=== PATIENT | female | born 1955 | race Caucasian/White ===

== ENCOUNTER 2018-03-06 06:35 | Inpatient (IN) | payer MEDICARE, MEDICAID ==
[~2018-03-06] VITALS: Ht 154.9 cm; Wt 69.6 kg
[2018-03-06] VITALS (7 sets, daily range): BP systolic 100–144; BP diastolic 58–82
--- NOTE | ~2018-03-06 | EKG ---
[place], [place] ELECTROCARDIOGRAM REPORT NAME: BRAD JIM UNIT #: [id number] ROOM: 407 DOCTOR: ZARIA DRAFT REPORT BIRTHDATE: [birth year] [facility] Test Date: 2018-03-06 Test Time: 14:01:57 Pat Name: BRAD JIM Department: Room: 407 Gender: F Gambling Monitor: Tessie Orellana : 1955 Requested By: JAYSON CESAR Order Number: [id number] Reading MD: Evelyne Sousa MD Measurements Intervals [place] Rate: 69 P: UT: QRS: -8 QRSD: 184 T: 8 QT: 507 QTc: 544 Interpretive Statements Sinus rhythm LVH with secondary repolarization abnormality Prolonged QT interval Baseline wander in lead(s) V5 Electronically Signed On 03-07-2018 10:48:20 PST by Evelyne Sousa MD CM:EKGRPT:ELECTROCARDIOGRAM REPORT [id number] JAYSON FLORES DRAFT REPORT JAYSON CESAR DO
--- NOTE | ~2018-03-06 | EKG ---
[place], [place] ELECTROCARDIOGRAM REPORT NAME: BRAD JIM UNIT #: [id number] ROOM: 407 DOCTOR: ZARIA DRAFT REPORT BIRTHDATE: [birth year] [facility] Test Date: 2018-03-06 Test Time: 10:31:38 Pat Name: BRAD JIM Department: Room: 407 Gender: F Aircrewman: Tessie Orellana : 1955 Requested By: JAYSON CESAR Order Number: [id number] Reading MD: Evelyne Sousa MD Measurements Intervals [place] Rate: 62 P: 22 SD: 107 QRS: 5 QRSD: 84 T: 19 QT: 422 QTc: 429 Interpretive Statements Sinus rhythm Short SD interval Electronically Signed On 03-07-2018 10:47:48 PST by Evelyne Sousa MD CM:EKGRPT:ELECTROCARDIOGRAM REPORT [id number] JAYSON FLORES DRAFT REPORT JAYSON CESAR DO
--- NOTE | ~2018-03-06 | ST ---
[place], [place] EXERCISE STRESS TEST REPORT NAME: BRAD JIM UNIT #: [id number] ROOM: 407 DOCTOR: LISA LORENZO MD BIRTHDATE: [birth year] DOS: 03/07/2018 LEXISCAN STRESS EKG REPORT REFERRING PHYSICIAN: Dr. Alvarado. INDICATION: Central chest pain. The patient underwent standard protocol Lexiscan stress EKG. The patient's baseline EKG is normal sinus rhythm with nonspecific ST-T wave changes with heart rate of 67 with a blood pressure of 132/76. The patient's peak heart rate was 102 with blood pressure of 140/56. The patient had no chest pain, no EKG changes, no arrhythmias noted. SUMMARY OF FINDINGS: Unremarkable Lexiscan stress EKG. See separate report for perfusion scan imaging results. LISA LORENZO MD CM:STRESS:EXERCISE STRESS TEST REPORT [id number] LISA LORENZO MD
--- NOTE | ~2018-03-06 | EKG ---
[place], [place] ELECTROCARDIOGRAM REPORT NAME: BRAD JIM UNIT #: [id number] ROOM: 407 DOCTOR: ZARIA DRAFT REPORT BIRTHDATE: [birth year] [facility] Test Date: 2018-03-06 Test Time: 06:43:54 Pat Name: BRAD JIM Department: Room: 407 Gender: F Pct: Tessie Orellana : 1955 Requested By: JAYSON CESAR Order Number: [id number] Reading MD: Evelyne Sousa MD Measurements Intervals [place] Rate: 66 P: 31 SD: 106 QRS: 9 QRSD: 83 T: 15 QT: 408 QTc: 428 Interpretive Statements Sinus rhythm Short SD interval Electronically Signed On 03-07-2018 10:47:34 PST by Evelyne Sousa MD CM:EKGRPT:ELECTROCARDIOGRAM REPORT [id number] JAYSON FLORES DRAFT REPORT JAYSON CESAR DO
[~2018-03-06 06:35] MED LIST: ASPIRIN ADULT L81 M1 PO; GLUCOPHAGE1000 MG PO; JANUVIA100 MG PO; MAXZIDE 25 MG-31 TAB PO; MOTRIN800 MG PO; VIBRAMYCIN100 MG PO; ZOCOR20 MG PO; ZOLOFT100 MG PO
[2018-03-06] MEDS ORDERED: GLUCOTROL10 MG PO (06:45)
[2018-03-06] MEDS ORDERED: PRILOSEC20 M1 PO (06:45)
[2018-03-06] MEDS ORDERED: VISTARIL50 MG PO (06:45)
[2018-03-06] MEDS ORDERED: PROZAC40 M1 PO (06:45)
[2018-03-06] MEDS ORDERED: KETOROLAC10 MG PO (06:46)
[2018-03-06 06:47] LABS: BASO # 0.1 10*3/uL (0.0-0.1); BASO % 0.6 % (0.0-1.0); EOS # 0.5 10*3/uL (0.0-0.4); HEMATOCRIT 43.2 % (37.0-47.0); HEMOGLOBIN 14.5 g/dl (12.0-16.0); LYMPH % 32.2 % (27.0-41.0); MEAN CELL VOLUME 80.9 fl (81.0-99.0); MEAN CORPUSCULAR HGB 27.2 pg (27.0-31.0); MEAN CORPUSCULAR HGB CONC 33.6 g/dl (33.0-37.0); MEAN PLATELET VOLUME 10.6 fl (9.6-12.3); MONO # 0.5 10*3/uL (0.1-1.0); MONO % 5.7 % (3.0-9.0); NEUT # 5.2 10*3/uL (2.3-7.9); PLATELET COUNT AUTOMATED 301 10*3/uL (130-400); RED BLOOD COUNT 5.34 10*6/uL (4.10-5.10); RED CELL DISTRI WIDTH 12.7 % (0-14.5); WHITE BLOOD COUNT 9.3 10*3/uL (4.8-10.8)
[2018-03-06 06:57] LABS: ACT PARTIAL THROMBO TIME 23.1 SECONDS (20.8-31.5); INTERNATIONAL NORM RATIO 0.9 (2.0-3.5)
[2018-03-06 07:05] LABS: ALBUMIN 3.5 gm/dl (3.1-4.5); ALKALINE PHOSPHATASE 140 U/L (45-117); BUN 14 mg/dl (7-24); CHLORIDE 100 mmol/L (98-107); CREATININE 0.96 mg/dL (0.55-1.02); POTASSIUM 3.8 mmol/L (3.5-5.1); SGOT/AST 30 IU/L (3-35); SGPT/ALT 30 U/L (12-78); SODIUM 136 mmol/L (136-145)
[2018-03-06 07:06] LABS: TROPONIN I < 0.015 ng/ml (<0.045)
--- NOTE | 2018-03-06 09:38 | NUR ---
CCA 62, admitted to , under the services of MAY Nelson DO with a diagnosis of CHEST PAIN, RULE OUT [place]. Chief complaint is CHEST PAIN. Patient arrived via ambulatory from ER. Monitor applied. Initial assessment completed. Vital signs taken and recorded. MAY NELSON DO notified of admission to the unit. Orders received. See assessment for past medical history, medications and allergies. Patient and/or family oriented to unit. [facility]. Clothing/patient valuable form completed. HORTENCIA DANIELS.
[2018-03-06] MEDS ORDERED: METOPROLOL SUCC50 M1 PO (09:55)
[2018-03-06] MEDS ORDERED: LIPITOR20 MG PO (09:56)
--- NOTE | 2018-03-06 11:10 | NUR ---
'S OFFICE NOTIFIED OF CONSULT.
--- NOTE | 2018-03-06 11:20 | NUR ---
ECHO BEING PERFORMED AT THE BEDSIDE.
--- NOTE | 2018-03-06 19:00 | NUR ---
ASSUMED CARE OF PT AT THIS TIME. PT RESTING IN BED, EASILY AROUSABLE. NO COMPLAINTS VOICED AT THIS TIME. WILL MONITOR. CALL LIGHT LEFT IN REACH.
[2018-03-07] VITALS: BP 115/55
[2018-03-07 01:00] VITALS: BP 139/85
--- NOTE | 2018-03-07 01:15 | NUR ---
PO TYLENOL ADMINISTERED PER PRN ORDER FOR C/O HEADACHE. WILL MONITOR EFFECTIVENESS. CALL LIGHT LEFT IN REACH.
[2018-03-07 06:50] LABS: BASO # 0.1 10*3/uL (0.0-0.1); BASO % 0.6 % (0.0-1.0); EOS # 0.4 10*3/uL (0.0-0.4); EOS % 5.1 % (1.0-4.0); HEMATOCRIT 41.3 % (37.0-47.0); HEMOGLOBIN 13.8 g/dl (12.0-16.0); LYMPH # 2.2 10*3/uL (1.3-4.4); MEAN CELL VOLUME 79.9 fl (81.0-99.0); MEAN CORPUSCULAR HGB 26.7 pg (27.0-31.0); MEAN CORPUSCULAR HGB CONC 33.4 g/dl (33.0-37.0); MEAN PLATELET VOLUME 10.7 fl (9.6-12.3); MONO # 0.4 10*3/uL (0.1-1.0); NEUT # 5.5 10*3/uL (2.3-7.9); NEUT % 63.6 % (47.0-73.0); PLATELET COUNT AUTOMATED 242 10*3/uL (130-400); RED BLOOD COUNT 5.17 10*6/uL (4.10-5.10); RED CELL DISTRI WIDTH 12.5 % (0-14.5); WHITE BLOOD COUNT 8.6 10*3/uL (4.8-10.8)
[2018-03-07 07:07] LABS: ALBUMIN 3.2 gm/dl (3.1-4.5); ALKALINE PHOSPHATASE 120 U/L (45-117); BUN 15 mg/dl (7-24); CHLORIDE 96 mmol/L (98-107); CHOLESTEROL 138 mg/dL (<200); CREATININE 0.87 mg/dL (0.55-1.02); FREE T4 0.79 ng/dl (0.76-1.46); HDL CHOLESTEROL 27 mg/dl (40-60); PHOSPHOROUS 4.4 mg/dL (2.5-4.9); POTASSIUM 4.6 mmol/L (3.5-5.1); SGOT/AST 29 IU/L (3-35); SGPT/ALT 31 U/L (12-78); SODIUM 134 mmol/L (136-145); TOTAL PROTEIN 6.4 gm/dL (6.4-8.2); TRIGLYCERIDES 434 mg/dl (<150)
[2018-03-07 08:07] LABS: VITAMIN D, 25-HYDROXY 14.2 ng/mL (30-100)
--- NOTE | 2018-03-07 09:00 | NUR ---
Rubber Chemist in to talk to patient. Patient states lives at home with family. There are few steps in the home. Physician: [facility] Patient's level of ADLs: INDEPENDENT Patient has working utilities: all working DME: none Follow-up physician's appointment after d/c: will be made by hospitalist nurse director upon discharge Does patient want to access PORTAL?: no Discharge plan discussed with patient, patient lives at home, is independent in adls and ambulation, patient states she will be going [facility] home when able and denies any home needs. VANNESSA WARNER
--- NOTE | 2018-03-07 10:30 | NUR ---
PATIENT HAS LEFT FLOOR FOR A STRESS TEST.
--- NOTE | 2018-03-07 11:56 | NUR ---
INFORMED SIGNED CONSENT OBTAINED FOR LEXISCAN STRESS TEST WITH DR LORENZO. RESTING EKG NSR HR 67 BP 132/76. PULSE OX 96% LUNGS CLEAR. PT COMPLETED ONE MINUTE OF A LEXISCAN PROTOCOL WITH PT RECEIVING LEXISCAN 0.4MG IV OVER 10 SECONDS. NO ARRHYTHMIAS OR ST CHANGES NOTED. PT C/O NAUSEA WITH INJECTION. LAST RECOVERY HR OF 93 BP 130/60. PT IN STABLE CONDITION, AWAITING NUCLEAR IMAGES.
[2018-03-07] MEDS ORDERED: NOVOLOG FL100 UNIT/1 SQ (15:53)
[2018-03-07] MEDS ORDERED: LEVEMIR FL100 UNIT/1 SQ (15:53)
[2018-03-07] MEDS ORDERED: PEN NEEDLE1 EAC2 MC (15:53)
[2018-03-07 16:00] VITALS: BP 123/68
--- NOTE | 2018-03-07 17:24 | NUR ---
PATIENT IS DISCHARGED. IV HAS BEEN DISCONTINUED AND MONITOR ACCOUNTED FOR. PATIENT LEFT FLOOR BY HERSELF AND REFUSED A WHEELCHAIR.
== END 2018-03-07 17:24 | disposition home or self-care (01) | DRG 880 ==
LOC: ED 06:35 → 4E 09:07 → EDHOLD 09:07 → 4E 09:17
PROVIDERS: Emergency Medicine; Student in an Organized Health Care Education/Training Program; ADMIT Internal Medicine
PROC: 4A02XM4 Measurement of Cardiac Total Activity, External Approach (ICD-10-PCS; principal; 2018-03-07)
PROC: 3E073KZ Introduction of Other Diagnostic Substance into Coronary Artery, Percutaneous Approach (ICD-10-PCS; principal; 2018-03-07)
DX: F41.9 Anxiety disorder, unspecified (principal); F32.9 Major depressive disorder, single episode, unspecified; R71.8 Other abnormality of red blood cells; E11.65 Type 2 diabetes mellitus with hyperglycemia; D72.1 Eosinophilia; E78.5 Hyperlipidemia, unspecified; I11.9 Hypertensive heart disease without heart failure; I34.0 Nonrheumatic mitral (valve) insufficiency; F17.210 Nicotine dependence, cigarettes, uncomplicated; I25.10 Atherosclerotic heart disease of native coronary artery without angina pectoris; K21.9 Gastro-esophageal reflux disease without esophagitis; Z88.5 Allergy status to narcotic agent; Z90.49 Acquired absence of other specified parts of digestive tract; Z88.0 Allergy status to penicillin; Z98.51 Tubal ligation status; Z79.82 Long term (current) use of aspirin; Z79.899 Other long term (current) drug therapy; Z79.84 Long term (current) use of oral hypoglycemic drugs

== ENCOUNTER → 2018-03-25 | Outpatient (CLI) | payer MEDICARE, MEDICAID ==
[~2018-03-25] MED LIST changes: +GLUCOTROL10 MG PO; +KETOROLAC10 MG PO; +LEVEMIR FL100 UNIT/1 SQ; +LIPITOR20 MG PO; +METOPROLOL SUCC50 M1 PO; +NOVOLOG FL100 UNIT/1 SQ; +PEN NEEDLE1 EAC2 MC; +PRILOSEC20 M1 PO; +PROZAC40 M1 PO; +VISTARIL50 MG PO
== END | disposition home or self-care (01) ==
LOC: RESCLI 02:16
DX: E11.9 Type 2 diabetes mellitus without complications (principal); I10 Essential (primary) hypertension; F32.9 Major depressive disorder, single episode, unspecified; F41.1 Generalized anxiety disorder; E78.5 Hyperlipidemia, unspecified; K21.9 Gastro-esophageal reflux disease without esophagitis; E53.8 Deficiency of other specified B group vitamins; E55.9 Vitamin D deficiency, unspecified; Z76.89 Persons encountering health services in other specified circumstances; Z79.4 Long term (current) use of insulin; Z79.84 Long term (current) use of oral hypoglycemic drugs; Z79.82 Long term (current) use of aspirin; Z79.899 Other long term (current) drug therapy; Z87.891 Personal history of nicotine dependence

== ENCOUNTER 2018-03-27 11:27 | Emergency (ER) | payer MEDICARE, MEDICAID ==
[~2018-03-27] VITALS: Ht 152.4 cm; Wt 67.1 kg
== END 2018-03-27 13:07 | disposition home or self-care (01) ==
LOC: ED 11:27
DX: T14.90XA Injury, unspecified, initial encounter (principal); M25.511 Pain in right shoulder; M25.552 Pain in left hip; M79.605 Pain in left leg; M19.90 Unspecified osteoarthritis, unspecified site; I10 Essential (primary) hypertension; E11.9 Type 2 diabetes mellitus without complications; E78.5 Hyperlipidemia, unspecified; Z87.891 Personal history of nicotine dependence; Z79.899 Other long term (current) drug therapy; Z79.82 Long term (current) use of aspirin; Z88.0 Allergy status to penicillin; Z88.6 Allergy status to analgesic agent; W07.XXXA Fall from chair, initial encounter; Y93.89 Activity, other specified; Y92.89 Other specified places as the place of occurrence of the external cause; Y99.8 Other external cause status

== ENCOUNTER → 2018-04-08 | Outpatient (CLI) | payer MEDICARE, MEDICAID | END | disposition home or self-care (01) | LOC: RESCLI 14:49 | DX: I10 Essential (primary) hypertension (principal); E11.9 Type 2 diabetes mellitus without complications; F32.9 Major depressive disorder, single episode, unspecified; F41.1 Generalized anxiety disorder; E78.5 Hyperlipidemia, unspecified; K21.9 Gastro-esophageal reflux disease without esophagitis; E53.8 Deficiency of other specified B group vitamins; E55.9 Vitamin D deficiency, unspecified; V89.2XXA Person injured in unspecified motor-vehicle accident, traffic, initial encounter; Z79.899 Other long term (current) drug therapy; Z79.4 Long term (current) use of insulin; Z88.8 Allergy status to other drugs, medicaments and biological substances; Z87.891 Personal history of nicotine dependence ==

== ENCOUNTER → 2019-02-19 | Outpatient (CLI) | payer MEDICARE, MEDICAID ==
[2019-02-19 10:56] LABS: BASO # 0.1 10*3/uL (0.0-0.1); BASO % 0.8 % (0.0-1.0); EOS # 0.3 10*3/uL (0.0-0.4); EOS % 3.7 % (1.0-4.0); HEMOGLOBIN 15.2 g/dl (12.0-16.0); LYMPH # 2.8 10*3/uL (1.3-4.4); LYMPH % 30.8 % (27.0-41.0); MEAN CELL VOLUME 82.7 fl (81.0-99.0); MEAN CORPUSCULAR HGB 27.3 pg (27.0-31.0); MEAN PLATELET VOLUME 11.6 fl (9.6-12.3); MONO # 0.5 10*3/uL (0.1-1.0); MONO % 5.6 % (3.0-9.0); NEUT # 5.3 10*3/uL (2.3-7.9); NEUT % 58.7 % (47.0-73.0); PLATELET COUNT AUTOMATED 286 10*3/uL (130-400); RED BLOOD COUNT 5.56 10*6/uL (4.10-5.10); RED CELL DISTRI WIDTH 12.3 % (0-14.5)
[2019-02-19 11:17] LABS: ALBUMIN 3.8 gm/dl (3.1-4.5); ALKALINE PHOSPHATASE 156 U/L (45-117); BUN 11 mg/dl (7-24); CHLORIDE 103 mmol/L (98-107); CHOLESTEROL 216 mg/dL (<200); CREATININE 0.89 mg/dL (0.55-1.02); HDL CHOLESTEROL 30 mg/dl (40-60); LDL CHOLESTEROL 133 mg/dL (9-159); POTASSIUM 3.9 mmol/L (3.5-5.1); SGOT/AST 21 IU/L (3-35); SGPT/ALT 27 U/L (12-78); SODIUM 136 mmol/L (136-145); TOTAL PROTEIN 7.3 gm/dL (6.4-8.2); TRIGLYCERIDES 265 mg/dl (<150); VLDL CHOLESTEROL 53 mg/dL (6-40)
[2019-02-20 09:10] LABS: CREATININE,URINE 65.6 mg/dL (Not Estab.); MICRO ALBUMIN/CRE RATIO 38.6 (0.0-30.0)
== END | disposition home or self-care (01) ==
LOC: RESCLI 00:53
PROVIDERS: Internal Medicine
DX: Z13.39 Encounter for screening examination for other mental health and behavioral disorders (principal); Z13.31 Encounter for screening for depression; E11.9 Type 2 diabetes mellitus without complications; I10 Essential (primary) hypertension; F32.9 Major depressive disorder, single episode, unspecified; F41.1 Generalized anxiety disorder; E78.5 Hyperlipidemia, unspecified; K21.9 Gastro-esophageal reflux disease without esophagitis; E55.9 Vitamin D deficiency, unspecified; M81.0 Age-related osteoporosis without current pathological fracture; E53.8 Deficiency of other specified B group vitamins; R79.89 Other specified abnormal findings of blood chemistry; Z79.4 Long term (current) use of insulin; Z79.899 Other long term (current) drug therapy; Z90.49 Acquired absence of other specified parts of digestive tract; Z88.0 Allergy status to penicillin; Z88.1 Allergy status to other antibiotic agents

== ENCOUNTER → 2019-09-28 | Outpatient (CLI) | payer OTHER, MEDICAID ==
[2019-09-28 07:49] LABS: BASO # 0.1 10*3/uL (0.0-0.1); BASO % 0.6 % (0.0-1.0); EOS # 0.4 10*3/uL (0.0-0.4); EOS % 4.1 % (1.0-4.0); HEMATOCRIT 39.1 % (37.0-47.0); LYMPH # 3.1 10*3/uL (1.3-4.4); LYMPH % 34.2 % (27.0-41.0); MEAN CELL VOLUME 82.3 fl (81.0-99.0); MEAN PLATELET VOLUME 11.4 fl (9.6-12.3); MONO # 0.5 10*3/uL (0.1-1.0); MONO % 5.9 % (3.0-9.0); NEUT # 4.9 10*3/uL (2.3-7.9); NEUT % 54.4 % (47.0-73.0); PLATELET COUNT AUTOMATED 231 10*3/uL (130-400); RED BLOOD COUNT 4.75 10*6/uL (4.10-5.10); RED CELL DISTRI WIDTH 12.7 % (0-14.5)
[2019-09-28 08:00] LABS: ALBUMIN 3.3 gm/dl (3.1-4.5); ALKALINE PHOSPHATASE 135 U/L (45-117); BUN 8 mg/dl (7-24); CHLORIDE 105 mmol/L (98-107); CHOLESTEROL 222 mg/dL (<200); FREE T4 1.39 ng/dl (0.76-1.46); HDL CHOLESTEROL 26 mg/dl (40-60); POTASSIUM 3.5 mmol/L (3.5-5.1); SGOT/AST 29 IU/L (3-35); SGPT/ALT 29 U/L (12-78); SODIUM 135 mmol/L (136-145); TOTAL PROTEIN 6.6 gm/dL (6.4-8.2); TRIGLYCERIDES 571 mg/dl (<150)
[2019-09-28 08:57] LABS: VITAMIN D, 25-HYDROXY 26.8 ng/mL (30-100)
== END | disposition home or self-care (01) ==
LOC: LAB 07:11
PROVIDERS: Internal Medicine
DX: Z00.00 Encounter for general adult medical examination without abnormal findings (principal); I10 Essential (primary) hypertension; E78.2 Mixed hyperlipidemia; E55.9 Vitamin D deficiency, unspecified; E11.9 Type 2 diabetes mellitus without complications

== ENCOUNTER → 2019-10-09 | Outpatient (CLI) | payer OTHER, MEDICAID | END | disposition home or self-care (01) | LOC: RAD 15:10 | DX: M54.2 Cervicalgia (principal); M54.5 Low back pain ==

== ENCOUNTER → 2020-05-11 | Outpatient (CLI) | payer OTHER, MEDICAID ==
[2020-05-11 07:39] LABS: BASO # 0.1 10*3/uL (0.0-0.1); BASO % 0.5 % (0.0-1.0); EOS # 0.4 10*3/uL (0.0-0.4); EOS % 3.5 % (1.0-4.0); HEMATOCRIT 43.8 % (37.0-47.0); LYMPH # 3.1 10*3/uL (1.3-4.4); LYMPH % 27.1 % (27.0-41.0); MEAN CELL VOLUME 85.5 fl (81.0-99.0); MEAN CORPUSCULAR HGB 27.5 pg (27.0-31.0); MEAN CORPUSCULAR HGB CONC 32.2 g/dl (33.0-37.0); MEAN PLATELET VOLUME 10.3 fl (9.6-12.3); MONO # 0.6 10*3/uL (0.1-1.0); MONO % 5.6 % (3.0-9.0); NEUT # 7.2 10*3/uL (2.3-7.9); NEUT % 62.9 % (47.0-73.0); PLATELET COUNT AUTOMATED 315 10*3/uL (130-400); RED BLOOD COUNT 5.12 10*6/uL (4.10-5.10); RED CELL DISTRI WIDTH 12.9 % (0-14.5); WHITE BLOOD COUNT 11.5 10*3/uL (4.8-10.8)
[2020-05-11 08:14] LABS: ALBUMIN 3.8 gm/dl (3.1-4.5); ALKALINE PHOSPHATASE 85 U/L (45-117); BUN 16 mg/dl (7-24); CHLORIDE 106 mmol/L (98-107); CHOLESTEROL 240 mg/dL (<200); CREATININE 1.01 mg/dL (0.55-1.02); HDL CHOLESTEROL 37 mg/dl (40-60); LDL CHOLESTEROL 159 mg/dL (9-159); SGOT/AST 11 IU/L (3-35); SGPT/ALT 20 U/L (12-78); SODIUM 140 mmol/L (136-145); TOTAL PROTEIN 7.4 gm/dL (6.4-8.2); TRIGLYCERIDES 221 mg/dl (<150); VLDL CHOLESTEROL 44 mg/dL (6-40)
== END | disposition home or self-care (01) ==
LOC: LAB 07:21
PROVIDERS: ATTEND Internal Medicine
DX: I10 Essential (primary) hypertension (principal); E03.9 Hypothyroidism, unspecified; E11.65 Type 2 diabetes mellitus with hyperglycemia; E55.9 Vitamin D deficiency, unspecified; E78.2 Mixed hyperlipidemia

== ENCOUNTER 2020-12-10 21:28 | Emergency (ER) | payer OTHER, MEDICAID ==
[~2020-12-10] VITALS: Ht 147.3 cm; Wt 52.2 kg
[2020-12-10] MEDS ORDERED: NAPROXEN250 MG PO (22:33)
== END 2020-12-10 23:43 | disposition home or self-care (01) ==
LOC: ED 21:28
DX: M25.531 Pain in right wrist (principal); Z88.0 Allergy status to penicillin; Z88.6 Allergy status to analgesic agent; Z79.899 Other long term (current) drug therapy; Z79.82 Long term (current) use of aspirin; Z87.891 Personal history of nicotine dependence